=== PATIENT | male | born 1950 | race African-American/Black ===

== ENCOUNTER 2023-01-11 05:45 | Day surgery (SDC) | payer OTHER ==
[~2023-01-11] VITALS: Ht 170.2 cm; Wt 79.8 kg
[2023-01-11] MEDS ORDERED: SIMETHICONE 40 MG/0.6 ML ML ONE (06:42)
[2023-01-11] MEDS ORDERED: MEPERIDINE HCL/PF 25 MG/ML DISP.SYRIN ONE (06:42)
[2023-01-11] MEDS ORDERED: MIDAZOLAM HCL 5 MG/5 ML VIAL ONE (06:43)
[2023-01-11 13:05] VITALS: BP_SYST 153
== END 2023-01-11 11:05 ==
LOC: SDS 05:45 → SMU 05:45 → SDS 11:05
PROVIDERS: ATTEND Internal Medicine Gastroenterology
DX: D50.9 Iron deficiency anemia, unspecified (principal); K21.00 Gastro-esophageal reflux disease with esophagitis, without bleeding; K29.50 Unspecified chronic gastritis without bleeding; B96.81 Helicobacter pylori [H. pylori] as the cause of diseases classified elsewhere; F41.9 Anxiety disorder, unspecified; F03.90 Unspecified dementia, unspecified severity, without behavioral disturbance, psychotic disturbance, mood disturbance, and anxiety; F32.A Depression, unspecified; E11.9 Type 2 diabetes mellitus without complications; E03.9 Hypothyroidism, unspecified; I10 Essential (primary) hypertension; F25.9 Schizoaffective disorder, unspecified; Z79.82 Long term (current) use of aspirin; Z79.899 Other long term (current) drug therapy; Z20.822 Contact with and (suspected) exposure to COVID-19
CPT/HCPCS: 43239; 87426; 87081; 82962; 36415; 88305; 88312; 88313; 99152; G0378; J2250; J2175

== ENCOUNTER 2023-04-10 07:12 | Day surgery (SDC) | payer OTHER ==
[~2023-04-10] VITALS: Ht 182.9 cm; Wt 81.6 kg
[2023-04-10] MEDS ORDERED: MIDAZOLAM HCL 5 MG/5 ML VIAL ONE (08:04)
[2023-04-10] MEDS ORDERED: MEPERIDINE 50 MG/ML VIAL ONE (08:04)
[2023-04-10 13:42] VITALS: BP_SYST 121
== END 2023-04-10 10:50 | disposition home or self-care (01) ==
LOC: SDS 07:12 → SMU 07:13 → SDS 10:50
PROVIDERS: ATTEND Internal Medicine Gastroenterology
DX: D64.9 Anemia, unspecified (principal); D12.2 Benign neoplasm of ascending colon; K64.8 Other hemorrhoids; F41.9 Anxiety disorder, unspecified; F32.A Depression, unspecified; F03.90 Unspecified dementia, unspecified severity, without behavioral disturbance, psychotic disturbance, mood disturbance, and anxiety; E11.9 Type 2 diabetes mellitus without complications; K21.9 Gastro-esophageal reflux disease without esophagitis; I10 Essential (primary) hypertension; E03.9 Hypothyroidism, unspecified; F25.9 Schizoaffective disorder, unspecified; Z79.82 Long term (current) use of aspirin; Z79.84 Long term (current) use of oral hypoglycemic drugs; Z79.899 Other long term (current) drug therapy
CPT/HCPCS: 45385; 82962; 87045; 36415; 88305; 99152; 99153; G0378; J2250; J2175; 87046